=== PATIENT | male | born 1995 | race Caucasian/White ===

== ENCOUNTER 2021-05-17 12:35 | Emergency (ER) | payer OTHER, SELFPAY ==
[2021-05-17 12:38] VITALS: BP 115/60; PULSE 76; RESP 18; TEMP 36.8; O2SAT 99; BMI 27.1
[2021-05-17 12:42] VITALS: BP 130/50; PULSE 70; O2SAT 99
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
== END 2021-05-17 13:36 | disposition home or self-care (01) ==
PROVIDERS: Emergency Provider Emergency Medicine
DX: S16.1XXA Strain of muscle, fascia and tendon at neck level, initial encounter (principal); V43.52XA Car driver injured in collision with other type car in traffic accident, initial encounter; Y93.89 Activity, other specified; Y92.414 Local residential or business street as the place of occurrence of the external cause; Y99.9 Unspecified external cause status
CPT/HCPCS: 99283

== ENCOUNTER 2024-12-03 21:36 | Emergency (ER) | payer OTHER, SELFPAY ==
--- NOTE | 2024-12-03 | ECG_ITS ---
Test Reason : tachycardia Blood Pressure : */* mmHG Vent. Rate : 93 BPM Atrial Rate : 93 BPM P-R Int : 88 ms QRS Dur : 108 ms QT Int : 374 ms P-R-T Axes : 39 -10 -24 degrees QTcB Int : 465 ms Sinus rhythm with short MI Minimal voltage criteria for LVH, may be normal variant ( R in aVL ) Borderline ECG No previous ECGs available Referred By: Generic ED Physician Electronically Signed By: SHERICE LAINEZ
[2024-12-03 22:07] VITALS: BP 144/78; PULSE 115; RESP 18; TEMP 37.2; O2SAT 100; BMI 32.9
[2024-12-03 22:46] LABS: Hematocrit 43.5 % (42.0-52.0); Mean Corpuscular HGB Conc 34.5 g/dl (31.0-36.0); Mean Corpuscular Hemoglobin 27.8 pg (27.0-33.0); Mean Corpuscular Volume 80.7 fL (80.0-98.0); Mean Platelet Volume 10.5 fL (9.4-12.4); Platelet Count 208 X10*3/uL (160-400); Red Blood Count 5.39 X10*6/uL (4.60-5.80); Red Cell Distribution Width 12.2 % (11.0-16.0); White Blood Count 10.6 X10*3/uL (4.8-10.8)
[2024-12-03 23:01] LABS: Alanine Aminotransferase 15 U/L (0-40); Albumin Level 4.3 g/dL (3.5-5.0); Alkaline Phosphatase 84 U/L (39-117); Anion Gap 15 (12-20); Aspartate Amino Transferase 19 U/L (5-37); Bilirubin Total 0.5 mg/dL (0.0-1.0); Blood Urea Nitrogen 17 mg/dL (9-16); Calcium 9.6 mg/dL (8.4-10.2); Carbon Dioxide 23 mmol/L (22-29); Chloride 105 mmol/L (96-108); Estimated Glomerular Filt Rate > 60; Glucose Random 110 mg/dL (60-115); Lactic Acid 0.6 mmol/L (0.5-2.0); Potassium 4.1 mmol/L (3.3-5.1); Sodium 139 mmol/L (135-145); Total Protein 7.7 g/dL (6.5-8.0)
[2024-12-04 01:41] VITALS: BP 108/71; PULSE 87; RESP 20; TEMP 36.9; O2SAT 97
--- NOTE | 2024-12-04 01:47 | ED.SKABFB ---
HPI - Skin/Abscess/Foreign Bdy General Chief complaint: Skin/Abscess/Foreign Body Stated complaint: open wound on buttocks, fever Time Seen by Provider: 12/04/24 01:36 Source: patient Mode of arrival: ambulatory Limitations: no limitations History of Present Illness ED Provider: HPI narrative: Patient's history of recurrent pilonidal abscesses noticed swelling in the nasal cleft area 4 days ago started on cephalexin and Flagyl did not see any improvement just prior to arrival patient is started having drainage from the swelling area while waiting to be seen patient has drained about 1 oz of fluid from the abscess area feeling much better in the pain now Related Data Previous Rx's ?Medication ?Instructions ?Recorded acetaminophen 500 mg tablet 1,000 mg (2 x 500 mg) PO QID PRN 05/17/21 pain #30 tabs ibuprofen 600 mg tablet 600 mg PO Q6H PRN pain #20 tabs 05/17/21 cephalexin 500 mg capsule 500 mg PO QID 10 days #40 caps 12/04/24 metronidazole 500 mg tablet 500 mg PO QID #40 tabs 12/04/24 Allergies Allergy/AdvReac Type Severity Reaction Status Date / Time No Known Allergies Allergy Verified 12/03/24 22:14 Review of Systems Review of Systems: Yes all other systems are reviewed and are negative [facility] Past Medical History Medical History (Updated 12/04/24 @ 06:21 by Bernardino Najera MD) Pilonidal abscess of cleft No active medical problems Social History Social History Smoked in Last 30 Days: No Advance Directives: No Advance Directives Information Provided: No Physical Exam Vital Signs: Vital Signs: Last Vital Signs Temp 98.5 F 12/04/24 02:33 Pulse 87 12/04/24 02:33 Resp 20 12/04/24 02:33 BP 108/71 12/04/24 02:33 Pulse Ox 97 12/04/24 02:33 O2 Del Method Room Air 12/04/24 02:33 BMI result Body Mass Index 32.9 Back/Spine/Pelvis: Back/spine/pelvis image: 1. 2 x 3 cm indurated abscess with opening and draining the pus Medical Decision Making Medical Decision Making MDM Narrative: Patient's pilonidal abscess already draining on Flagyl and cephalexin advised to continue same medication follow up with surgeon Lab Data 12/03/24 22:37 12/03/24 22:37 Labs: Lab Results 12/03/24 Range/Units 22:37 WBC 10.6 (4.8-10.8) X10*3/uL RBC 5.39 (4.60-5.80) X10*6/uL Hgb 15.0 (14.0-18.0) g/dl Hct 43.5 (42.0-52.0) % MCV 80.7 (80.0-98.0) fL MCH 27.8 (27.0-33.0) pg MCHC 34.5 (31.0-36.0) g/dl RDW 12.2 (11.0-16.0) % Plt Count 208 (160-400) X10*3/uL MPV 10.5 (9.4-12.4) fL Absolute Nucleated RBC 0.000 (0.0-0.012) X10*3/uL Nucleated RBC % (auto) 0.0 (0.0-0.2) /100WBC Sodium 139 (135-145) mmol/L Potassium 4.1 (3.3-5.1) mmol/L Chloride 105 (96-108) mmol/L Carbon Dioxide 23 (22-29) mmol/L Anion Gap 15 (12-20) BUN 17 H (9-16) mg/dL Creatinine 0.83 (0.5-1.4) mg/dL Estim Creat Clear Calc 186.0 Estimated GFR > 60 Random Glucose 110 (60-115) mg/dL Lactic Acid 0.6 (0.5-2.0) mmol/L Calcium 9.6 (8.4-10.2) mg/dL Total Bilirubin 0.5 (0.0-1.0) mg/dL AST 19 (5-37) U/L ALT 15 (0-40) U/L Alkaline Phosphatase 84 (39-117) U/L Total Protein 7.7 (6.5-8.0) g/dL Albumin 4.3 (3.5-5.0) g/dL Discharge Plan Discharge Clinical Impression: Pilonidal abscess of ramone cleft Patient Disposition: Home, Self-Care Instructions: Pilonidal Cyst (ED) Additional Instructions: Local care as advised Follow with surgeon for further management Take antibiotics as prescribed Shave the area to avoid future infections Prescriptions: New cephalexin 500 mg capsule 500 mg PO QID 10 Days Qty: 40 0RF metronidazole 500 mg tablet 500 mg PO QID Qty: 40 0RF No Action acetaminophen 500 mg tablet 1,000 mg PO QID PRN (Reason: pain) Qty: 30 0RF ibuprofen 600 mg tablet 600 mg PO Q6H PRN (Reason: pain) Qty: 20 0RF Referrals: Davis Draek MD [Physician] - 1 week Interventions: ED Discharge Assessment Last Done: 12/04/24 02:33 Discharge Date/Time: 12/04/24 02:38 Print Language: Khmer
[2024-12-04 02:33] VITALS: BP 108/71; PULSE 87; RESP 20; TEMP 36.9; O2SAT 97
== END 2024-12-04 02:38 | disposition home or self-care (01) ==
PROVIDERS: Emergency Provider Internal Medicine
DX: L05.01 Pilonidal cyst with abscess (principal); R50.9 Fever, unspecified; R00.0 Tachycardia, unspecified; Z79.899 Other long term (current) drug therapy
CPT/HCPCS: 36415; 80053; 83605; 85027; 87040; 93005; 99283; 99284

== ENCOUNTER → 2024-12-03 22:25 | Outpatient (BNV) | payer OTHER, SELFPAY | PROVIDERS: Emergency Provider Internal Medicine; Visit Provider Internal Medicine | DX: R00.0 Tachycardia, unspecified (principal) | CPT/HCPCS: 93010 ==

== ENCOUNTER 2024-12-13 10:09 | Outpatient (AMB) | payer OTHER, SELFPAY ==
--- NOTE | 2024-12-13 10:10 | MHC.OFFVIS ---
Vital Signs 12/13/24 10:18 Height 6 ft 4 in Weight 262 lb BMI 31.9 BP 120/72 Blood Pressure Location Rt brachial Position Sitting Pulse 76 Intake Visit Reasons: Pilonidal abscess of cleft Intake Note: Patient referred after ED visit for pilonidal cyst on 12-04-24. Txt Cephalexin, Metronidazole completed course. Patient c/o: slight oozing. Denies pain, inflammation. Reports 2 previous flares in two different areas. [employer] Required: No Accompanied by: Sister Allergies No Known Allergies Allergy (Verified 12/13/24 10:16) HPI Comments Details: Patient was accompanied by his sister. He had a recent episode of infected pilonidal cyst of daria cleft with spontaneously drained. He was seen in the ER presents here for follow-up. He has had several episodes of this. His symptoms have increased over the last year's time. Chart was reviewed and patient evaluated. A lengthy discussion about the etiology of pilonidal cyst and infection was reviewed with the patient. Repetitive motions to the area including sit-ups driving etcetera promote the hair ingrowth into the sinus tracts leading to the infection and abscess formation. [facility] Medical History Pilonidal abscess of cleft No active medical problems Surgical History (Updated 12/13/24 @ 11:28 by Michael Oliva MD) [place] teeth extracted Social History (Updated 12/13/24 @ 10:17 by GREG Loera) Alcohol intake: never Patient Tobacco Use Status: Never used Tobacco Physical Exam Vital Signs: Last Vital Signs Pulse 76 12/13/24 10:18 BP 120/72 12/13/24 10:18 BMI result Body Mass Index 31.9 GI Other: Abdomen corpulent, soft, benign Back/Spine/Pelvis Other: Daria cleft area demonstrates significant amount of here in the area. Patient was several sinus tracts. At the lower right hand area there is an area were had spontaneous drainage of an abscess and this is healed. At present no evidence of any cellulitis or fluctuance or abscess. Assessment & Plan Assessment & Plan (1) Pilonidal cyst of daria cleft: Code(s): L05.91 - Pilonidal cyst without abscess Category: Surgical Plan An extensive discussion was had with the patient and his sister regarding therapeutic options which range from conservative therapy, shaving, or surgical excision. He also mentioned a laser therapy, and only know about this but have no firsthand experience with the. At present, patient wishes to be treated conservatively with shaving of the area every other week. Should he have a recurrent infection or would like to further discuss surgical intervention, he has been instructed to contact the office. All questions answered. Medications: Discontinued cephalexin Discontinued Reason: Patient Completed Course 500 mg PO QID 10 days 40 caps 0RF metronidazole Discontinued Reason: Patient Completed Course 500 mg PO QID 40 tabs 0RF Coding Level of Care Code New Pt Level 4 (16745) Diagnoses Pilonidal cyst of cleft L05.91
[2024-12-13 10:18] VITALS: BP 120/72; PULSE 76; BMI 31.9
== END 2024-12-13 10:42 | disposition home or self-care (01) ==
PROVIDERS: Visit Provider Surgery
DX: L05.91 Pilonidal cyst without abscess (principal)
CPT/HCPCS: 99204

== ENCOUNTER → 2024-12-13 10:09 | Outpatient (BNVA) | payer OTHER, SELFPAY | PROVIDERS: Visit Provider Surgery | DX: L05.91 Pilonidal cyst without abscess (principal) | CPT/HCPCS: 99202 ==